=== PATIENT | male | born 1940 | race Caucasian/White ===

== ENCOUNTER 2019-05-18 07:26 | Day surgery (SDC) | payer MEDICARE ==
[2019-05-17 15:51] LABS: BASOPHILS # (AUTO) 0.1 X10'3 (0-0.2); EOSINOPHILS # (AUTO) 0.4 X10'3 (0-0.9); EOSINOPHILS % (AUTO) 5.8 % (0-6); HEMATOCRIT 35.1 % (42.0-52.0); HEMOGLOBIN 11.9 g/dl (14.0-17.9); LYMPHOCYTES # (AUTO) 2.4 X10'3 (1.1-4.8); MEAN CORPUSCULAR HEMOGLOBIN 31.5 PG (27.0-31.0); MEAN CORPUSCULAR VOLUME 92.6 FL (78-98); MONOCYTES # (AUTO) 0.6 X10'3 (0-0.9); MONOCYTES % (AUTO) 9.2 % (2-12); NEUTROPHILS # (AUTO) 2.8 X10'3 (1.8-7.7); PLATELET COUNT 176 X10'3 (140-440); RED BLOOD COUNT 3.79 X10'6 (4.70-6.10); RED CELL DISTRIBUTION WIDTH 13.5 % (11.5-14.5); WHITE BLOOD COUNT 6.2 X10'3 (4.5-11.0)
[2019-05-17 16:01] LABS: PARTIAL THROMBOPLASTIN TIME 30 SECONDS (22-32)
[2019-05-17 16:03] LABS: ALANINE AMINOTRANSFERASE 25 U/L (12-78); ALBUMIN 4.2 G/DL (3.4-5.0); ALBUMIN/GLOBULIN RATIO 1.2 (1.1-1.5); ALKALINE PHOSPHATASE 60 IU/L (46-116); ANION GAP 10 (8-16); ASPARTATE AMINO TRANSFERASE 19 U/L (10-37); BILIRUBIN,TOTAL 0.3 MG/DL (0.1-1.0); BLOOD UREA NITROGEN 31 MG/DL (7-18); BUN/CREATININE RATIO 15.2 (5.4-32.0); CALCIUM 9.7 MG/DL (8.5-10.1); CHLORIDE 106 MMOL/L (99-107); CREATININE 2.04 MG/DL (0.60-1.10); GLUCOSE 106 MG/DL (70-104); POTASSIUM 4.7 MMOL/L (3.5-5.1); SODIUM 141 MMOL/L (135-145); TOTAL CARBON DIOXIDE 25.5 MMOL/L (24-32); TOTAL PROTEIN 7.6 G/DL (6.4-8.2); eGFR 32 ML/MIN
[~2019-05-18] VITALS: Ht 190.5 cm; Wt 91.0 kg
[2019-05-18] VITALS (15 sets, daily range): BP systolic 122–163; BP diastolic 56–77
[2019-05-18] MEDS ORDERED: nitroGLYCERIN 0.4mg SUBLingual tab SL PRN (07:50)
[2019-05-18] MEDS ORDERED: glucagon, human recombinant 1mg kit SUBCUT PRN (07:55)
[2019-05-18] MEDS ORDERED: dextrose 50%-water 50ml dispensing syringe IV PRN ×2 (07:55)
[2019-05-18] MEDS ORDERED: diphenhydrAMINE 25mg capsule PO PRN (07:55)
[2019-05-18] MEDS ORDERED: MESSAGE TO PHARMACY PO ONE (07:55)
[2019-05-18] MEDS ORDERED: insulin Lispro (HumaLOG) vial - multi-dose SQ SCH (07:55)
[2019-05-18] MEDS ORDERED: normal saline 1,000 ML IV SCH (07:55)
[2019-05-18] MEDS ORDERED: dextrose ORAL solution 15 GM/59 ML bottle PO PRN ×2 (07:55)
[2019-05-18] MEDS ORDERED: LORazepam 0.5 MG tablet PO PRN (07:55)
[2019-05-18] MEDS ORDERED: CETI-90 PO (08:02)
[2019-05-18] MEDS ORDERED: CHOL20002 PO (08:02)
[2019-05-18] MEDS ORDERED: FLO0.4C PO (08:02)
[2019-05-18] MEDS ORDERED: GLUC-183 PO (08:02)
[2019-05-18] MEDS ORDERED: METF-950 PO (08:02)
[2019-05-18] MEDS ORDERED: MAGN250T11 PO (08:02)
[2019-05-18] MEDS ORDERED: AMLO5TAB16 PO (08:02)
[2019-05-18] MEDS ORDERED: LACT1CAP75 PO (08:02)
[2019-05-18] MEDS ORDERED: ROSU10TA28 PO (08:02)
[2019-05-18] MEDS ORDERED: midazolam 2 mg/2 ml injection ONE ×2 (08:40→09:45)
[2019-05-18] MEDS ORDERED: fentaNYL/PF 50MCG/1 ML 2ML syringe ONE (08:40)
[2019-05-18] MEDS ORDERED: LIDOcaine 1% (10mg/ml)w/preservative injection 20ml MDV ONE (08:40)
[2019-05-18] MEDS ORDERED: iohexol 350MG/ML 100ml bottle IV ONE (08:40)
[2019-05-18] MEDS ORDERED: iohexol 350 MG/ML 50ML vial IV ONE (08:40)
[2019-05-18] MEDS ORDERED: HYDROcodone/acetaminophen 10/325mg tab PO PRN (10:55)
[2019-05-18] MEDS ORDERED: ondansetron/PF 4mg/2ml inj IV PRN (10:55)
[2019-05-18] MEDS ORDERED: proCHLORperazine 10 MG/2 ml inj IV PRN (10:55)
[2019-05-18] MEDS ORDERED: HYDROcodone/acetaminophen 5mg/325mg tablet PO PRN (10:55)
[2019-05-18] MEDS ORDERED: acetaminophen 325mg tablet PO PRN (10:55)
[2019-05-18] MEDS ORDERED: OXAZEpam 15mg capsule PO PRN (10:55)
[2019-05-18] MEDS ORDERED: insulin glargine (Lantus) pen - multi-dose SQ SCH (21:00)
== END 2019-05-18 16:00 | disposition home or self-care (01) ==
LOC: SSTAY O 07:26
PROVIDERS: ATTEND Internal Medicine Cardiovascular Disease
DX: I25.118 Atherosclerotic heart disease of native coronary artery with other forms of angina pectoris (principal); E11.22 Type 2 diabetes mellitus with diabetic chronic kidney disease; I12.9 Hypertensive chronic kidney disease with stage 1 through stage 4 chronic kidney disease, or unspecified chronic kidney disease; N18.9 Chronic kidney disease, unspecified; E78.5 Hyperlipidemia, unspecified; G47.33 Obstructive sleep apnea (adult) (pediatric); J44.9 Chronic obstructive pulmonary disease, unspecified; Z96.611 Presence of right artificial shoulder joint; Z87.891 Personal history of nicotine dependence; Z79.899 Other long term (current) drug therapy
CPT/HCPCS: 36415; 71046; 80053; 82948; 85025; 85610; 85730; 93458; 99152; 99153; C1769; J1644; J1815; J2001; J2250; J3010; J7030; Q0163; Q9967; A6258; C1760

== ENCOUNTER 2024-07-13 15:16 | Outpatient (CLI) | payer MEDICARE ==
[~2024-07-13] VITALS: Ht 180.3 cm; Wt 113.4 kg
[~2024-07-13 15:16] MED LIST: AMLO5TAB16 PO; ASPI-1 PO; METF-1203 PO; ONQPUMP ADDCANAL; ROSU10TA72 PO; TAMS-55 PO
[2024-07-13 15:42] LABS: TOTAL HEMOGLOBIN 7.9 G/dl (13.5-17.5)
[2024-07-13] MEDS: albuterol 2.5 MG/3 ML nebule NEB ONE (16:24)
[2024-07-13 16:26] VITALS: PULSE 76; RESP 18; O2SAT 97
[2024-07-13 16:39] VITALS: PULSE 77; RESP 17
--- NOTE | 2024-07-15 10:40 | PROCEDURE NOTE - Respiratory ---
Procedure Note-Respiratory Providers to Copies To 1: MIKAEL DOE MD; ALEXI GREENWOOD MD Procedure Name: This is a complete pulmonary function study dated July 13, 2024. Hemoglobin measurement was done as part of the study. Spirometry measurements: Both the forced vital capacity and the FEV1 show very mild decreased. The FEV1 ratio is in the normal range. Several of the flow rate measurements show reduction. After inhaled bronchodilator was administered, there is no appreciable change in the flow volume curve. Lung volume measurements: All of the lung volume determinations show symmetric reduction in the mild category. This suggests a mild restrictive ventilatory defect. Lung diffusion measurement: The DLCO measurement is normal. It is noted that the hemoglobin measurement shows significant anemia with hemoglobin measured at 7.9 g per dL. Airway resistance measurement: The airway resistance is elevated. This again suggests some degree of airway obstruction. Overall conclusion: This study is abnormal. There is evidence for mild-to-mo derate obstructive ventilatory defect. 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 In addition there is an element of mild restrictive ventilatory defect. The lung diffusion capacity is in the normal range. The patient shows significant anemia. This rather significant anemia is adding to this patient's symptoms of shortness of breath with exertion. We have no previous studies for comparison. ALEXI GREENWOOD MD July 15, 2024 10:40
== END 2024-07-13 23:59 | disposition home or self-care (01) ==
LOC: RT 15:16
PROVIDERS: ATTEND Internal Medicine Pulmonary Disease
DX: J44.9 Chronic obstructive pulmonary disease, unspecified (principal)
CPT/HCPCS: 85018; 94060; 94727; 94729; 94760